=== PATIENT | male | born 1965 | race Caucasian/White ===

== ENCOUNTER 2017-12-07 04:45 | Emergency (ER) | payer OTHER ==
[2017-12-07] MEDS ORDERED: ASPIRIN 81 MG TABLET, CHEWABLE PO ONE (06:09)
[2017-12-07 06:19] LABS: HEMATOCRIT 44.7 % (37.9-51.0); HEMOGLOBIN 15.3 g/dL (13.5-17.0); MEAN CORPUSCULAR HEMOGLOBIN 32.3 pg (27.0-33.4); MEAN CORPUSCULAR HGB CONC 34.3 g/dL (32.0-36.0); MEAN CORPUSCULAR VOLUME 94 fl (80-97); PLATELET COUNT 204 10^3/uL (150-450); RED BLOOD COUNT 4.75 10^6/uL (4.35-5.55); RED CELL DISTRIBUTION WIDTH 12.9 % (11.5-14.0); WHITE BLOOD COUNT 12.3 10^3/uL (4.0-10.5)
[2017-12-07 06:25] LABS: ALANINE AMINOTRANSFERASE 22 U/L (21-72); ALBUMIN 3.6 g/dL (3.5-5.0); ALKALINE PHOSPHATASE 34 U/L (38-126); ANION GAP 12 (5-19); ASPARTATE AMINO TRANSFERASE 32 U/L (17-59); BILIRUBIN,DIRECT 0.3 mg/dL (0.0-0.4); BLOOD UREA NITROGEN 23 mg/dL (7-20); CARBON DIOXIDE 22 mmol/L (22-30); CHLORIDE 109 mmol/L (98-107); CREATINE KINASE 171 U/L (55-170); GLUCOSE 106 mg/dL (75-110); LIPASE 83.3 U/L (23-300); POTASSIUM 4.1 mmol/L (3.6-5.0); SODIUM 142.9 mmol/L (137-145)
--- NOTE | 2017-12-07 06:27 | ER Document Report ---
ED Medical Screen (RME) - General Chief Complaint: Chest Pain Stated Complaint: NAUSEA/VOMITING Time Seen by Provider: 12/07/17 05:09 Notes: 52 year old male complaining of epigastric and lower chest pain onset at 1:30 a.m. associated with nausea and vomiting and chills. Patient vomited around 3: 00, felt much better but then the pain started return. They called 911 and EMS brought him to the emergency department. Denies personal or family history of ischemic cardiac disease, he does have history of cardiac ablation. TRAVEL OUTSIDE OF THE [place] IN LAST 30 DAYS: No Past Medical History - General Information source: Patient - Social History Cigarette use (# per day): No Frequency of alcohol use: None Drug Abuse: None Review of Systems - Review of Systems Cardiovascular: See HPI Physical Exam - Vital signs Vitals: Temp Resp Pulse Ox 98.7 F 19 99 12/07/17 04:48 12/07/17 04:48 12/07/17 04:48 Interpretation: Normal - General General appearance: Appears well, Alert - Respiratory Respiratory status: No respiratory distress Chest status: Nontender Breath sounds: Normal Chest palpation: Normal - Cardiovascular Rhythm: Regular Heart sounds: Normal auscultation Murmur: No - Abdominal Inspection: Normal Distension: No distension Bowel sounds: Normal Tenderness: Nontender Organomegaly: No organomegaly Course - Vital Signs Vital signs: Temp Pulse Resp BP Pulse Ox 98.7 F 24 H 130/77 H 96 12/07/17 04:48 12/07/17 06:01 12/07/17 06:01 12/07/17 06:01 - Laboratory Result Diagrams: 12/07/17 05:00 12/07/17 05:00
[2017-12-07] MEDS ORDERED: NORMAL SALINE 1000 ML 1,000 ML IV ONE (06:28)
[2017-12-07] MEDS ORDERED: ONDANSETRON HCL INJ/PF 4 MG/2 ML SDV IV ONE (06:28)
--- NOTE | 2017-12-07 06:28 | ER Document Report ---
ED Cardiac - General Chief Complaint: Chest Pain Stated Complaint: NAUSEA/VOMITING Time Seen by Provider: 12/07/17 05:09 Mode of Arrival: Medic Information source: Patient, Relative TRAVEL OUTSIDE OF THE [place] IN LAST 30 DAYS: No - HPI Patient complains to provider of: Other - 52-year-old otherwise healthy gentleman the presents for evaluation of an episode of emesis this morning he notes that he had gone to bed in his usual state of health had drank may be 2 beers and one mixed drink but nothing more than usual at which time he woke up felt sweaty and nauseous went to the bathroom had a pressure at the base of his chest and then subsequently called EMS because of his unwell feeling. When EMS arrived he had an episode of emesis after which his symptoms improved he notes that currently he has no pain, has no chest pain, shortness of breath, lightheadedness, diaphoresis, arm pain tingling abdominal pain diarrhea constipation or dysuria. - Related Data Allergies/Adverse Reactions: Penicillins Allergy (Verified 12/07/17 06:37) Past Medical History - General Information source: Patient - Social History Smoking Status: Former Smoker Family History: None Review of Systems - Review of Systems -: Yes All other systems reviewed and negative Physical Exam - Vital signs Vitals: Temp Resp Pulse Ox 98.7 F 19 99 12/07/17 04:48 12/07/17 04:48 12/07/17 04:48 - General General appearance: Appears well In distress: None - HEENT Head: Normocephalic, Open wounds Eyes: Normal Conjunctiva: Normal Cornea: Normal Extraocular movements intact: Yes Eyelashes: Normal Pupils: PERRL - Respiratory Respiratory status: No respiratory distress Chest status: Nontender Breath sounds: Normal Chest palpation: Normal - Cardiovascular Rhythm: Regular Heart sounds: Normal auscultation Murmur: No - Back Back: Normal, Nontender - Extremities General upper extremity: Normal inspection, Nontender, Normal color, Normal ROM , Normal temperature General lower extremity: Normal inspection, Nontender, Normal color, Normal ROM , Normal temperature, Normal weight bearing. No: Stanley's sign - Neurological Neuro grossly intact: Yes Cognition: Normal Orientation: AAOx4 [place] Coma Scale Eye Opening: Spontaneous [place] Coma Scale Verbal: Oriented [place] Coma Scale Motor: Obeys Commands Hi Coma Scale Total: 15 Speech: Normal Motor strength normal: LUE, RUE, LLE, RLE Sensory: Normal - Psychological Associated symptoms: Normal affect, Normal mood Course - Re-evaluation Re-evalutation: 12/07/17 09:29 52-year-old man that presents for evaluation of an episode of emesis as well as chest pain which spontaneously resolved after his episode of emesis. It been his usual state of health until he went to sleep last night and woke up having some abdominal pain as well as chills. On examination the gentleman is well-appearing has no complaints at this time. Does not have any known medical problems. Is a former smoker but is otherwise abstinent of tobacco as well as drugs. Given the gentleman is well appearance overall will plan for initiation of potential cardiac etiologies he did have some discomfort at the base of his chest however believe that he has a very low suspicion story, he has no known risk factors, he has a negative troponin, he has a relatively normal EKG without obvious depressions making his heart score a 1 for age, 0 for story, 0 for troponin 0 for EKG 0 for risk factors. 12/10/17 10:03 Patient with 2- troponins in the emergency department, he is asymptomatic at this time, has not had any arrhythmias on monitor. His heart score is a 1. There is no other obvious cause identified likely he had an episode of gastritis after having drunk last night, his episodes of emesis improved his symptoms. We will plan for discharge with a brief prescription for Zofran and symptom control encouraged alcohol cessation moving forward. - Vital Signs Vital signs: Temp Pulse Resp BP Pulse Ox 98.5 F 21 H 120/68 97 12/07/17 10:49 12/07/17 10:49 12/07/17 10:49 12/07/17 10:49 - Laboratory Result Diagrams: 12/07/17 05:00 12/07/17 05:00 Laboratory results interpreted by me: 12/07/17 12/07/17 05:00 05:00 WBC 12.3 H Seg Neuts % (Manual) 95 H Lymphocytes % (Manual) 1 L Abs Neuts (Manual) 11.7 H Abs Lymphs (Manual) 0.1 L Chloride 109 H BUN 23 H Alkaline Phosphatase 34 L Creatine Kinase 171 H Total Protein 6.0 L Discharge - Discharge Clinical Impression: Epigastric pain Emesis Qualifiers: Vomiting type: unspecified Vomiting Intractability: unspecified Nausea presence : with nausea Qualified Code(s): R11.2 - Nausea with vomiting, unspecified Condition: Good Disposition: HOME, SELF-CARE Instructions: Chest Pain of Unclear Cause ([facility]), Vomiting ([facility]) Additional Instructions: He was seen today in the emergency department after he vomited. You had evaluation including a physical exam, an EKG, chest x-ray, blood tests for damage to your heart, your kidney function and liver tests. There is no obvious cause identified for your nausea today and pain in the base of your chest. I believe he would benefit from having a primary physician, please call and schedule an appointment this week to have a primary care physician. Return for any worsening chest pain, shortness of breath, inability to eat or drink, worsening symptoms or otherwise. Prescriptions: Ondansetron [Zofran Odt] 4 mg PO TID PRN #14 tab.rapdis PRN Reason: For Nausea/Vomiting
[2017-12-07 06:37] LABS: CREATINE KINASE MB 1.43 ng/mL (<4.55)
[2017-12-07 06:46] LABS: TROPONIN I < 0.012 ng/mL
[2017-12-07 06:49] LABS: ABSOLUTE LYMPHOCYTES# (MANUAL) 0.1 10^3/uL (0.5-4.7); ABSOLUTE MONOCYTES # (MANUAL) 0.5 10^3/uL (0.1-1.4); ABSOLUTE NEUTROPHILS# (MANUAL) 11.7 10^3/uL (1.7-8.2); BASOPHILS % (MANUAL) 0 % (0-2); EOSINOPHILS % (MANUAL) 0 % (0-6); LYMPHOCYTES % (MANUAL) 1 % (13-45); MONOCYTES % (MANUAL) 4 % (3-13); PLATELET COMMENT ADEQUATE; PLATELET LARGE PRESENT; RBC MORPHOLOGY COMMENT NORMO-CYTIC/CHROMIC; SEGMENTED NEUTROPHILS % (MAN) 95 % (42-78); TOTAL CELLS COUNTED 100; TOXIC GRANULATION SLIGHT
--- NOTE | 2017-12-07 07:06 | RADIOLOGY REPORT (SQ) ---
EXAM DESCRIPTION: XR CHEST 1 VIEW COMPLETED DATE/TME: 12/07/2017 06:09 CLINICAL HISTORY: chest pain COMPARISON: None. FINDINGS: Single frontal view of the chest. Elevation the left hemidiaphragm. Leads overlie the chest. The cardiomediastinal silhouette has normal size and contour. No consolidation, pneumothorax, or pleural effusion. No displaced rib fractures identified. Upper abdominal soft tissues are unremarkable. IMPRESSION: 1. No acute pulmonary process identified.
[2017-12-07 10:53] VITALS: BP 120/68
--- NOTE | 2017-12-07 12:39 | EKG REPORT ---
SEVERITY:- NORMAL ECG - SINUS RHYTHM : Confirmed by: Tammy Jay MD 07-Dec-2017 12:38:47
== END 2017-12-07 10:53 | disposition home or self-care (01) ==
LOC: ER 04:45
DX: R10.13 Epigastric pain (principal); R07.9 Chest pain, unspecified; R11.2 Nausea with vomiting, unspecified; Z87.891 Personal history of nicotine dependence
CPT/HCPCS: 93005; 99285; 96361; 96374; 36415; 82553; 82550; 83690; 85025; 80053; 84484; 71045; 93010; J2405; J7030